=== PATIENT | male | born 1995 | race Caucasian/White ===

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

== ENCOUNTER 2018-08-13 18:46 | Emergency (ER) | payer OTHER, BC ==
[2018-08-13 18:50] VITALS: BP 130/78; PULSE 68; TEMP 97.5; BMI 21.2
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
== END 2018-08-13 20:41 | disposition home or self-care (01) ==
LOC: FER 18:46
DX: S66.911A Strain of unspecified muscle, fascia and tendon at wrist and hand level, right hand, initial encounter (principal); V43.52XA Car driver injured in collision with other type car in traffic accident, initial encounter; Y93.89 Activity, other specified; Y92.410 Unspecified street and highway as the place of occurrence of the external cause; S50.812A Abrasion of left forearm, initial encounter
CPT/HCPCS: 73130-TC-RT-FY; 99281-25